=== PATIENT | male | born 1945 | race African-American/Black ===

== ENCOUNTER 2020-08-08 07:33 | Inpatient (IN) | payer MEDICARE, MEDICAID ==
[~2020-08-08] VITALS: Ht 190.5 cm; Wt 95.3 kg
[2020-08-08] VITALS (15 sets, daily range): BP systolic 149–176; BP diastolic 55–99
[2020-08-08] MEDS ORDERED: MORPHINE SULFATE 4 MG/ML CPJ (NOT FOR IM USE) IV STA (07:45)
[2020-08-08 08:31] LABS: BG FRACTION INSPIRED OXYGEN 100; BG HCO3 ACT 18.3 mmol/L (22.0-26.0); BG PCO2 23.7 mmHg (35.0-45.0); BG PH 7.506 (7.350-7.450); BG PO2 164.8 mmHg (75.0-100.0); BG SAMPLE SITE LEFT BRACHIAL; BG TOTAL HEMOGLOBIN < 4.5 g/dL (12.0-18.0); BG VENT MODE MASK - NRB
[2020-08-08 08:33] LABS: CHLORIDE 110 mEq/L (98-107)
[2020-08-08 08:57] LABS: BASOPHILS % 0.7 % (0.0-2.0); EOSINOPHILS % 0.3 % (0.0-5.0); LYMPHOCYTES % 14.8 % (20.0-50.0); MEAN CORPUSCULAR HEMOGLOBIN 24.6 pg (28.0-32.0); MEAN CORPUSCULAR VOLUME 81.7 fL (80.0-94.0); MEAN PLATELET VOLUME 8.1 fl (7.4-10.4); NEUTROPHILS % 80.2 % (40.0-76.0); PLATELET 218 x1000/uL (130-400); RED BLOOD CELL COUNT 1.07 mill/uL (4.7-6.1); RED CELL DISTRIBUTION WIDTH 19.9 % (11.6-14.6)
[2020-08-08 09:00] LABS: HEMATOCRIT. 8.8 % (42.0-52.0); HEMOGLOBIN. 2.6 g/dL (14.0-18.0)
[2020-08-08 12:11] LABS: INR 1.2; PROTHROMBIN TIME 12.4 sec (9.6-11.0)
[2020-08-08] MEDS ORDERED: IOHEXOL-350 100 ML BOTTLE ONE (14:11)
[2020-08-08] MEDS ORDERED: FUROSEMIDE 40MG/4ML VIAL IVP NR (15:30)
[2020-08-08 16:50] LABS: TOTAL IRON BINDING CAPACITY 373 ug/dL (250-450)
[2020-08-08 17:15] LABS: FOLIC ACID (FOLATE) SERUM 15.5 ng/mL (>5.38)
[2020-08-08] MEDS ORDERED: SODIUM CHLORIDE 0.9% 10ML VIAL ONE (17:40)
[2020-08-08] MEDS ORDERED: IPRATROPIUM/ALBUTEROL 0.5-3(2.5)MG/3ML NEB HHN PRN (18:15)
[2020-08-08] MEDS ORDERED: ONDANSETRON HCL 4MG/2ML INJ IV PRN (18:15)
[2020-08-08] MEDS ORDERED: ACETAMINOPHEN 325MG TABLET PO PRN ×2 (18:15)
[2020-08-08] MEDS ORDERED: LORAZEPAM 0.5MG TABLET PO PRN (18:15)
[2020-08-08] MEDS ORDERED: DOCUSATE SODIUM 100MG CAPSULE PO PRN (18:15)
[2020-08-08] MEDS: HYDROCODONE/ACETAMINOPHEN 5/325MG TABLET PO PRN (18:54)
[2020-08-08] MEDS: AMLODIPINE 5MG TABLET PO SCH (18:54)
[2020-08-08] MEDS: CLONIDINE 0.1MG TABLET PO PRN (21:06)
[2020-08-08] MEDS: PANTOPRAZOLE SODIUM 40 MG/VIAL IV SCH (22:22)
[2020-08-09] VITALS (32 sets, daily range): BP systolic 132–173; BP diastolic 61–97
[2020-08-09 00:02] LABS: HEMATOCRIT 16.4 % (42.0-52.0); HEMOGLOBIN 5.1 g/dL (14.0-18.0)
[2020-08-09 01:23] LABS: INR 1.2; PROTHROMBIN TIME 12.8 sec (9.6-11.0)
[2020-08-09] MEDS: HYDROCODONE/ACETAMINOPHEN 5/325MG TABLET PO PRN ×2 (04:05→10:30)
[2020-08-09] MEDS: CLONIDINE 0.1MG TABLET PO PRN (04:16)
[2020-08-09 06:45] LABS: BASOPHILS % 0.7 % (0.0-2.0); CHLORIDE 113 mEq/L (98-107); EOSINOPHILS % 0.8 % (0.0-5.0); MEAN CORPUSCULAR HEMOGLOBIN 26.5 pg (28.0-32.0); MEAN CORPUSCULAR VOLUME 82.8 fL (80.0-94.0); MEAN PLATELET VOLUME 7.9 fl (7.4-10.4); NEUTROPHILS % 85.5 % (40.0-76.0); PLATELET 175 x1000/uL (130-400); RED BLOOD CELL COUNT 2.39 mill/uL (4.7-6.1); RED CELL DISTRIBUTION WIDTH 16.8 % (11.6-14.6)
[2020-08-09 07:03] LABS: INR 1.2; PARTIAL THROMBOPLASTIN TIME 25.4 sec (23.4-31.0); PROTHROMBIN TIME 12.6 sec (9.6-11.0)
[2020-08-09] MEDS ORDERED: FUROSEMIDE 40MG/4ML VIAL IVP NR (07:45)
[2020-08-09 07:48] LABS: HEMATOCRIT. 19.8 % (42.0-52.0); HEMOGLOBIN. 6.3 g/dL (14.0-18.0)
[2020-08-09] MEDS: AMLODIPINE 5MG TABLET PO SCH (08:57)
[2020-08-09] MEDS: PANTOPRAZOLE SODIUM 40 MG/VIAL IV SCH ×2 (08:57→21:28)
[2020-08-09] MEDS: SPIRONOLACTONE 25MG TABLET PO SCH (10:28)
[2020-08-09] MEDS: LISINOPRIL 5MG TABLET PO SCH (10:29)
[2020-08-09] MEDS: CARVEDILOL 6.25 MG TABLET PO SCH ×2 (10:29→21:28)
[2020-08-09 14:17] LABS: HEMATOCRIT 23.2 % (42.0-52.0); HEMOGLOBIN 7.6 g/dL (14.0-18.0)
[2020-08-09] MEDS ORDERED: MIDAZOLAM HCL 5 MG/5 ML VIAL IV PRN (17:35)
[2020-08-09] MEDS ORDERED: FENTANYL CITRATE/PF 50MCG/ML 2ML VIAL IV PRN (17:36)
[2020-08-09] MEDS ORDERED: MIDAZOLAM HCL 5 MG/5 ML VIAL ONE (17:38)
[2020-08-09] MEDS ORDERED: FENTANYL CITRATE/PF 50MCG/ML 2ML VIAL ONE (17:39)
[2020-08-09] MEDS ORDERED: SODIUM CHLORIDE 0.9% 10ML VIAL ONE (17:40)
[2020-08-09 20:12] LABS: INR 1.1; PROTHROMBIN TIME 12.2 sec (9.6-11.0)
[2020-08-10] VITALS (12 sets, daily range): BP systolic 131–159; BP diastolic 65–94
[2020-08-10] MEDS: HYDROCODONE/ACETAMINOPHEN 5/325MG TABLET PO PRN ×3 (00:31→20:54)
[2020-08-10 07:05] LABS: CHLORIDE 110 mEq/L (98-107)
[2020-08-10 07:06] LABS: BASOPHILS % 0.9 % (0.0-2.0); EOSINOPHILS % 2.7 % (0.0-5.0); HEMATOCRIT. 24.4 % (42.0-52.0); HEMOGLOBIN. 8.1 g/dL (14.0-18.0); LYMPHOCYTES % 10.2 % (20.0-50.0); MEAN CORPUSCULAR HEMOGLOBIN 27.3 pg (28.0-32.0); MEAN CORPUSCULAR VOLUME 82.7 fL (80.0-94.0); MEAN PLATELET VOLUME 8.2 fl (7.4-10.4); MONOCYTES % 4.8 % (2.0-8.0); NEUTROPHILS % 81.4 % (40.0-76.0); PLATELET 151 x1000/uL (130-400); RED BLOOD CELL COUNT 2.95 mill/uL (4.7-6.1); RED CELL DISTRIBUTION WIDTH 16.8 % (11.6-14.6)
[2020-08-10] MEDS ORDERED: SORBITOL 70% SOLN 30ML PO NR (08:00)
[2020-08-10] MEDS ORDERED: BISACODYL 10MG SUPP PR NR (08:00)
[2020-08-10] MEDS: AMLODIPINE 5MG TABLET PO SCH (08:53)
[2020-08-10] MEDS: PANTOPRAZOLE SODIUM 40 MG/VIAL IV SCH ×2 (08:54→20:46)
[2020-08-10] MEDS: LISINOPRIL 5MG TABLET PO SCH (08:55)
[2020-08-10] MEDS: SPIRONOLACTONE 25MG TABLET PO SCH (08:55)
[2020-08-10] MEDS ORDERED: FUROSEMIDE 40MG/4ML VIAL IVP SCH (09:00)
[2020-08-10] MEDS: CARVEDILOL 6.25 MG TABLET PO SCH (09:21)
[2020-08-10] MEDS ORDERED: LISINOPRIL 5MG TABLET PO NR (10:45)
[2020-08-10] MEDS ORDERED: POTASSIUM CHLORIDE 20MEQ TABLET SR PO NR (11:00)
[2020-08-10] MEDS: IRON SUCROSE COMPLEX 100 MG/5 ML ML IV SCH (12:29)
[2020-08-10] MEDS: FUROSEMIDE 40MG/4ML VIAL IVP SCH (17:47)
[2020-08-10] MEDS: CLONIDINE 0.1MG TABLET PO PRN (18:32)
[2020-08-10] MEDS: CARVEDILOL 12.5MG TABLET PO SCH (20:47)
[2020-08-11] VITALS (10 sets, daily range): BP systolic 131–160; BP diastolic 59–80
[2020-08-11] MEDS: FUROSEMIDE 40MG/4ML VIAL IVP SCH (06:13)
[2020-08-11] MEDS: HYDROCODONE/ACETAMINOPHEN 5/325MG TABLET PO PRN ×2 (06:14→13:33)
[2020-08-11 07:18] LABS: BASOPHILS % 1.4 % (0.0-2.0); EOSINOPHILS % 5.4 % (0.0-5.0); HEMOGLOBIN. 8.6 g/dL (14.0-18.0); LYMPHOCYTES % 15.3 % (20.0-50.0); MEAN CORPUSCULAR HEMOGLOBIN 27.3 pg (28.0-32.0); MEAN CORPUSCULAR VOLUME 82.9 fL (80.0-94.0); MEAN PLATELET VOLUME 8.4 fl (7.4-10.4); MONOCYTES % 5.3 % (2.0-8.0); NEUTROPHILS % 72.6 % (40.0-76.0); PLATELET 156 x1000/uL (130-400); RED BLOOD CELL COUNT 3.14 mill/uL (4.7-6.1); RED CELL DISTRIBUTION WIDTH 16.7 % (11.6-14.6)
[2020-08-11 07:26] LABS: CHLORIDE 105 mEq/L (98-107)
[2020-08-11] MEDS: SPIRONOLACTONE 25MG TABLET PO SCH (08:49)
[2020-08-11] MEDS: AMLODIPINE 5MG TABLET PO SCH (08:49)
[2020-08-11] MEDS: PANTOPRAZOLE SODIUM 40 MG/VIAL IV SCH (08:49)
[2020-08-11] MEDS: CARVEDILOL 12.5MG TABLET PO SCH (08:50)
[2020-08-11] MEDS ORDERED: LISINOPRIL 10MG TABLET PO SCH (09:00)
[2020-08-11] MEDS ORDERED: POTASSIUM CHLORIDE INJ 40 MEQ in DEXT 5% WATER 250 ML IV NR (11:00)
[2020-08-11] MEDS ORDERED: FURO40TA5 MT (13:04)
[2020-08-11] MEDS ORDERED: FERR325T23 MT (13:04)
[2020-08-11] MEDS ORDERED: COR12 PO (13:04)
[2020-08-11] MEDS ORDERED: AMLO5TAB88 PO (13:04)
[2020-08-11] MEDS ORDERED: SPIR25TA PO (13:04)
[2020-08-11] MEDS ORDERED: LISI10TA26 PO (13:04)
[2020-08-11] MEDS ORDERED: PANT40TA51 MT (13:04)
[2020-08-11] MEDS: IRON SUCROSE COMPLEX 100 MG/5 ML ML IV SCH (13:36)
[2020-08-11] MEDS ORDERED: POTASSIUM CHLORIDE 20MEQ TABLET SR PO SCH (16:00)
[2020-08-11] MEDS ORDERED: FUROSEMIDE 40MG TABLET PO SCH (18:00)
[2020-08-11] MEDS ORDERED: FLUTICASONE PROPIONATE 50MCG/SPRAY BOTTLE BOTHNSTRLS SCH (21:00)
== END 2020-08-11 18:30 | disposition home health service (06) | DRG 377 ==
LOC: ER 08:00 → 3WST 10:54 → EDBEDREQSVC 10:58 → EDBEDREQTM 10:58 → EDBEDREQ 10:58 → ENRESERV 14:43
PROVIDERS: ADMIT Internal Medicine; ATTEND Internal Medicine
PROC: 30233N1 Transfusion of Nonautologous Red Blood Cells into Peripheral Vein, Percutaneous Approach (ICD-10-PCS; 2020-08-08)
PROC: 0DB68ZX Excision of Stomach, Via Natural or Artificial Opening Endoscopic, Diagnostic (ICD-10-PCS; principal; 2020-08-09)
DX: K29.61 Other gastritis with bleeding (principal); I50.23 Acute on chronic systolic (congestive) heart failure; J96.00 Acute respiratory failure, unspecified whether with hypoxia or hypercapnia; I21.A1 Myocardial infarction type 2; I42.9 Cardiomyopathy, unspecified; J91.8 Pleural effusion in other conditions classified elsewhere; D50.9 Iron deficiency anemia, unspecified; I11.0 Hypertensive heart disease with heart failure; E78.5 Hyperlipidemia, unspecified; I25.10 Atherosclerotic heart disease of native coronary artery without angina pectoris; R07.89 Other chest pain; I48.0 Paroxysmal atrial fibrillation; J44.9 Chronic obstructive pulmonary disease, unspecified; B96.81 Helicobacter pylori [H. pylori] as the cause of diseases classified elsewhere; Z20.822 Contact with and (suspected) exposure to COVID-19; K62.89 Other specified diseases of anus and rectum; K52.9 Noninfective gastroenteritis and colitis, unspecified; K44.9 Diaphragmatic hernia without obstruction or gangrene; Z95.1 Presence of aortocoronary bypass graft; Z95.5 Presence of coronary angioplasty implant and graft; I25.2 Old myocardial infarction
CPT/HCPCS: 36415; 36600; 71045; 71275; 74177; 80048; 80053; 80061; 82375; 82607; 82728; 82746; 82805; 83010; 83036; 83540; 83550; 83615; 83880; 84443; 84484; 85014; 85018; 85025; 85044; 85049; 85384; 86850; 86900; 86920; 87426; 88305; 88312; 88313; 93005; 93306; 99291; C9113; J1940; J2250; J2270; J3010; J3480; J7040; J7060; P9016; Q9967

== ENCOUNTER 2020-08-19 15:39 | Emergency (ER) | payer MEDICAID, MEDICARE ==
[~2020-08-19] VITALS: Ht 177.8 cm; Wt 810.0 kg
[~2020-08-19 15:39] MED LIST: AMLO5TAB88 PO; COR12 PO; FERR325T23 MT; FURO40TA5 MT; LISI10TA26 PO; PANT40TA51 MT; SPIR25TA PO
[2020-08-19 15:43] VITALS: BP 170/95
== END 2020-08-19 15:47 | disposition left against medical advice (07) ==
LOC: ER 15:39
DX: Z53.21 Procedure and treatment not carried out due to patient leaving prior to being seen by health care provider (principal)

== ENCOUNTER 2021-01-03 20:14 | Inpatient (IN) | payer BC, MEDICAID ==
[~2021-01-03] VITALS: Ht 190.5 cm; Wt 86.2 kg
[2021-01-03] MEDS ORDERED: DIPHENHYDRAMINE 25MG CAPSULE PO ONE (22:30)
[2021-01-03 22:56] LABS: BASOPHILS % 0.4 % (0.0-2.0); EOSINOPHILS % 2.1 % (0.0-5.0); LYMPHOCYTES % 18.1 % (20.0-50.0); MEAN CORPUSCULAR HEMOGLOBIN 26.8 pg (28.0-32.0); MEAN CORPUSCULAR VOLUME 83.8 fL (80.0-94.0); MEAN PLATELET VOLUME 7.1 fl (7.4-10.4); MONOCYTES % 5.1 % (2.0-8.0); NEUTROPHILS % 74.3 % (40.0-76.0); PLATELET 281 x1000/uL (130-400); RED BLOOD CELL COUNT 2.21 mill/uL (4.7-6.1); RED CELL DISTRIBUTION WIDTH 18.3 % (11.6-14.6)
[2021-01-03 23:01] LABS: CHLORIDE 106 mEq/L (98-107)
[2021-01-03 23:09] LABS: HEMATOCRIT. 18.5 % (42.0-52.0); HEMOGLOBIN. 5.9 g/dL (14.0-18.0)
[2021-01-04] VITALS (17 sets, daily range): BP systolic 94–145; BP diastolic 42–65
[2021-01-04] MEDS ORDERED: NALOXONE HCL 0.4MG/ML VIAL IV PRN (05:00)
[2021-01-04] MEDS: HYDROCODONE/ACETAMINOPHEN 5/325MG TABLET PO PRN ×4 (05:13→20:18)
[2021-01-04] MEDS: METOPROLOL TARTRATE 50MG TABLET PO SCH ×2 (08:44→20:17)
[2021-01-04] MEDS: ISOSORBIDE MONONITRATE 60MG TABLET SR 24HR PO SCH (08:44)
[2021-01-04] MEDS ORDERED: ASPIRIN 81MG TABLET PO SCH (09:00)
[2021-01-04] MEDS ORDERED: ENOXAPARIN 40MG/0.4ML SYR SUBCUT SCH (11:00)
[2021-01-04] MEDS: PANTOPRAZOLE SODIUM 40 MG/VIAL IV SCH (13:59)
[2021-01-04 17:40] LABS: BASOPHILS % 0.6 % (0.0-2.0); EOSINOPHILS % 5.2 % (0.0-5.0); HEMATOCRIT. 21.1 % (42.0-52.0); LYMPHOCYTES % 19.6 % (20.0-50.0); MEAN CORPUSCULAR HEMOGLOBIN 27.9 pg (28.0-32.0); MEAN CORPUSCULAR VOLUME 83.5 fL (80.0-94.0); MEAN PLATELET VOLUME 7.4 fl (7.4-10.4); MONOCYTES % 5.8 % (2.0-8.0); NEUTROPHILS % 68.8 % (40.0-76.0); PLATELET 272 x1000/uL (130-400); RED BLOOD CELL COUNT 2.52 mill/uL (4.7-6.1); RED CELL DISTRIBUTION WIDTH 17.2 % (11.6-14.6)
[2021-01-04 17:52] LABS: CHLORIDE 107 mEq/L (98-107)
[2021-01-04 17:58] LABS: TOTAL IRON BINDING CAPACITY 322 ug/dL (250-450)
[2021-01-04 18:11] LABS: FOLIC ACID (FOLATE) SERUM 7.4 ng/mL (>5.38)
[2021-01-04] MEDS: ATORVASTATIN CALCIUM 40MG TABLET PO SCH (20:17)
[2021-01-05] VITALS (7 sets, daily range): BP systolic 114–129; BP diastolic 53–63
[2021-01-05 00:08] LABS: METHADONE URINE SCREEN NEGATIVE (NEGATIVE)
[2021-01-05 00:09] LABS: *AMPHETAMINES SCREEN URINE NEGATIVE (NEGATIVE); CANNABINOID URINE SCREEN NEGATIVE (NEGATIVE); OPIATES URINE SCREEN PRESUMTIVE POSITIVE (NEGATIVE); PHENCYCLIDINE URINE SCREEN NEGATIVE (NEGATIVE)
[2021-01-05 00:10] LABS: *BARBITURATES SCREEN URINE NEGATIVE (NEGATIVE); *BENZODIAZEPINES SCREEN URINE NEGATIVE (NEGATIVE); *COCAINE SCREEN URINE NEGATIVE (NEGATIVE)
[2021-01-05] MEDS: HYDROCODONE/ACETAMINOPHEN 5/325MG TABLET PO PRN ×4 (06:21→20:39)
[2021-01-05] MEDS: ISOSORBIDE MONONITRATE 60MG TABLET SR 24HR PO SCH (10:56)
[2021-01-05] MEDS: IRON SUCROSE COMPLEX 100 MG/5 ML ML IV SCH (10:57)
[2021-01-05] MEDS: METOPROLOL TARTRATE 50MG TABLET PO SCH (10:57)
[2021-01-05] MEDS: PANTOPRAZOLE SODIUM 40 MG/VIAL IV SCH (10:57)
[2021-01-05 15:38] LABS: BASOPHILS % 0.7 % (0.0-2.0); EOSINOPHILS % 6.2 % (0.0-5.0); HEMATOCRIT. 24.9 % (42.0-52.0); HEMOGLOBIN. 8.2 g/dL (14.0-18.0); LYMPHOCYTES % 15.7 % (20.0-50.0); MEAN CORPUSCULAR HEMOGLOBIN 28.3 pg (28.0-32.0); MEAN PLATELET VOLUME 7.1 fl (7.4-10.4); MONOCYTES % 5.6 % (2.0-8.0); NEUTROPHILS % 71.8 % (40.0-76.0); PLATELET 267 x1000/uL (130-400); RED CELL DISTRIBUTION WIDTH 16.4 % (11.6-14.6)
[2021-01-05] MEDS: CARVEDILOL 6.25 MG TABLET PO SCH ×2 (15:38→22:43)
[2021-01-05] MEDS: SPIRONOLACTONE 25MG TABLET PO SCH (15:38)
[2021-01-05 15:52] LABS: CHLORIDE 106 mEq/L (98-107)
[2021-01-05] MEDS: ATORVASTATIN CALCIUM 40MG TABLET PO SCH (20:39)
[2021-01-06] VITALS: BP 112/54
[2021-01-06] MEDS: HYDROCODONE/ACETAMINOPHEN 5/325MG TABLET PO PRN ×4 (05:00→20:19)
[2021-01-06 06:05] LABS: CHLORIDE 108 mEq/L (98-107)
[2021-01-06 06:07] LABS: BASOPHILS % 0.5 % (0.0-2.0); EOSINOPHILS % 7.2 % (0.0-5.0); HEMATOCRIT. 21.1 % (42.0-52.0); HEMOGLOBIN. 7.2 g/dL (14.0-18.0); LYMPHOCYTES % 16.7 % (20.0-50.0); MEAN CORPUSCULAR HEMOGLOBIN 28.8 pg (28.0-32.0); MEAN CORPUSCULAR VOLUME 84.2 fL (80.0-94.0); MEAN PLATELET VOLUME 7.4 fl (7.4-10.4); MONOCYTES % 4.2 % (2.0-8.0); NEUTROPHILS % 71.4 % (40.0-76.0); PLATELET 228 x1000/uL (130-400); RED CELL DISTRIBUTION WIDTH 16.4 % (11.6-14.6)
[2021-01-06 08:00] VITALS: BP 125/88
[2021-01-06] MEDS: IRON SUCROSE COMPLEX 100 MG/5 ML ML IV SCH (10:12)
[2021-01-06] MEDS: PANTOPRAZOLE SODIUM 40 MG/VIAL IV SCH (10:12)
[2021-01-06] MEDS: CARVEDILOL 6.25 MG TABLET PO SCH ×2 (10:13→20:22)
[2021-01-06] MEDS: SPIRONOLACTONE 25MG TABLET PO SCH (10:13)
[2021-01-06] MEDS: ISOSORBIDE MONONITRATE 60MG TABLET SR 24HR PO SCH (10:14)
[2021-01-06] MEDS: FUROSEMIDE 40MG TABLET PO SCH (10:16)
[2021-01-06 12:00] VITALS: BP 127/52
[2021-01-06 14:17] VITALS: BP 123/60
[2021-01-06 16:00] VITALS: BP 118/61
[2021-01-06] MEDS ORDERED: ZOLPIDEM TARTRATE 5MG TABLET PO PRN (18:15)
[2021-01-06 20:00] VITALS: BP 153/70
[2021-01-06] MEDS: DOCUSATE SODIUM 100MG CAPSULE PO SCH (20:19)
[2021-01-06] MEDS: ATORVASTATIN CALCIUM 40MG TABLET PO SCH (20:20)
[2021-01-06 20:34] LABS: BASOPHILS % 0.7 % (0.0-2.0); EOSINOPHILS % 6.2 % (0.0-5.0); HEMATOCRIT. 27.7 % (42.0-52.0); HEMOGLOBIN. 9.3 g/dL (14.0-18.0); LYMPHOCYTES % 14.4 % (20.0-50.0); MEAN CORPUSCULAR HEMOGLOBIN 28.6 pg (28.0-32.0); MEAN PLATELET VOLUME 7.7 fl (7.4-10.4); MONOCYTES % 4.5 % (2.0-8.0); NEUTROPHILS % 74.2 % (40.0-76.0); PLATELET 277 x1000/uL (130-400); RED BLOOD CELL COUNT 3.25 mill/uL (4.7-6.1); RED CELL DISTRIBUTION WIDTH 16.2 % (11.6-14.6)
[2021-01-07] VITALS: BP 151/67
[2021-01-07] MEDS: HYDROCODONE/ACETAMINOPHEN 5/325MG TABLET PO PRN ×6 (00:11→21:59)
[2021-01-07 04:00] VITALS: BP 142/73
[2021-01-07 05:53] LABS: BASOPHILS % 0.5 % (0.0-2.0); EOSINOPHILS % 7.1 % (0.0-5.0); HEMATOCRIT. 25.4 % (42.0-52.0); HEMOGLOBIN. 8.5 g/dL (14.0-18.0); LYMPHOCYTES % 18.2 % (20.0-50.0); MEAN CORPUSCULAR HEMOGLOBIN 28.3 pg (28.0-32.0); MEAN CORPUSCULAR VOLUME 84.4 fL (80.0-94.0); MEAN PLATELET VOLUME 7.4 fl (7.4-10.4); NEUTROPHILS % 70.2 % (40.0-76.0); PLATELET 249 x1000/uL (130-400); RED BLOOD CELL COUNT 3.01 mill/uL (4.7-6.1); RED CELL DISTRIBUTION WIDTH 15.9 % (11.6-14.6)
[2021-01-07 06:09] LABS: CHLORIDE 104 mEq/L (98-107)
[2021-01-07] MEDS: FUROSEMIDE 40MG TABLET PO SCH (08:44)
[2021-01-07] MEDS: IRON SUCROSE COMPLEX 100 MG/5 ML ML IV SCH (08:44)
[2021-01-07] MEDS: PANTOPRAZOLE SODIUM 40 MG/VIAL IV SCH (08:44)
[2021-01-07] MEDS: DOCUSATE SODIUM 100MG CAPSULE PO SCH ×2 (08:45→17:21)
[2021-01-07] MEDS: CARVEDILOL 6.25 MG TABLET PO SCH ×2 (08:47→21:50)
[2021-01-07] MEDS: ISOSORBIDE MONONITRATE 60MG TABLET SR 24HR PO SCH (08:47)
[2021-01-07] MEDS: SPIRONOLACTONE 25MG TABLET PO SCH (08:47)
[2021-01-07 12:00] VITALS: BP 119/59
[2021-01-07 16:00] VITALS: BP 116/62
[2021-01-07] MEDS ORDERED: SORBITOL 70% SOLN 30ML PO NR (16:00)
[2021-01-07] MEDS: BISACODYL 5MG TABLET PO SCH ×2 (18:08→21:51)
[2021-01-07] MEDS: SORBITOL 70% SOLN 30ML PO SCH ×2 (18:08→21:50)
[2021-01-07] MEDS: METOCLOPRAMIDE HCL 10MG/2ML VIAL IV SCH ×2 (18:08→21:51)
[2021-01-07 20:00] VITALS: BP 123/79
[2021-01-07 21:22] LABS: PROTHROMBIN TIME 11.2 sec (9.6-11.0)
[2021-01-07] MEDS: ATORVASTATIN CALCIUM 40MG TABLET PO SCH (21:50)
[2021-01-07 23:17] LABS: BASOPHILS % 0.3 % (0.0-2.0); EOSINOPHILS % 7.2 % (0.0-5.0); HEMATOCRIT. 27.4 % (42.0-52.0); HEMOGLOBIN. 9.2 g/dL (14.0-18.0); LYMPHOCYTES % 17.1 % (20.0-50.0); MEAN CORPUSCULAR HEMOGLOBIN 28.9 pg (28.0-32.0); MEAN CORPUSCULAR VOLUME 86.5 fL (80.0-94.0); MEAN PLATELET VOLUME 7.2 fl (7.4-10.4); NEUTROPHILS % 70.4 % (40.0-76.0); PLATELET 281 x1000/uL (130-400); RED BLOOD CELL COUNT 3.17 mill/uL (4.7-6.1); RED CELL DISTRIBUTION WIDTH 16.4 % (11.6-14.6)
[2021-01-08] VITALS: BP 123/53
[2021-01-08] MEDS: SORBITOL 70% SOLN 30ML PO SCH ×2 (02:30→05:46)
[2021-01-08 04:00] VITALS: BP 144/76
[2021-01-08] MEDS: BISACODYL 5MG TABLET PO SCH (05:42)
[2021-01-08] MEDS: METOCLOPRAMIDE HCL 10MG/2ML VIAL IV SCH (05:45)
[2021-01-08] MEDS: HYDROCODONE/ACETAMINOPHEN 5/325MG TABLET PO PRN ×4 (05:45→22:00)
[2021-01-08] MEDS ORDERED: LIDOCAINE HCL 1% 20ML VIAL (Pyxis) INJ ONE (07:43)
[2021-01-08 08:00] VITALS: BP 126/61
[2021-01-08] MEDS: CARVEDILOL 6.25 MG TABLET PO SCH ×2 (08:20→21:46)
[2021-01-08] MEDS: DOCUSATE SODIUM 100MG CAPSULE PO SCH ×2 (08:20→17:00)
[2021-01-08] MEDS: ISOSORBIDE MONONITRATE 60MG TABLET SR 24HR PO SCH (08:20)
[2021-01-08] MEDS: FUROSEMIDE 40MG TABLET PO SCH (08:21)
[2021-01-08] MEDS: PANTOPRAZOLE SODIUM 40 MG/VIAL IV SCH (09:01)
[2021-01-08 10:27] LABS: BASOPHILS % 0.4 % (0.0-2.0); HEMATOCRIT. 30.6 % (42.0-52.0); HEMOGLOBIN. 9.9 g/dL (14.0-18.0); LYMPHOCYTES % 7.8 % (20.0-50.0); MEAN CORPUSCULAR HEMOGLOBIN 28.5 pg (28.0-32.0); MEAN CORPUSCULAR VOLUME 87.7 fL (80.0-94.0); MEAN PLATELET VOLUME 7.3 fl (7.4-10.4); MONOCYTES % 1.6 % (2.0-8.0); NEUTROPHILS % 85.2 % (40.0-76.0); PLATELET 348 x1000/uL (130-400); RED BLOOD CELL COUNT 3.49 mill/uL (4.7-6.1)
[2021-01-08 10:51] LABS: PROTHROMBIN TIME 10.9 sec (9.6-11.0)
[2021-01-08 12:00] VITALS: BP 118/60
[2021-01-08] MEDS ORDERED: MIDAZOLAM HCL 5 MG/5 ML VIAL ONE ×2 (15:38→16:41)
[2021-01-08] MEDS ORDERED: FENTANYL CITRATE/PF 50MCG/ML 2ML VIAL ONE (15:38)
[2021-01-08] MEDS ORDERED: FENTANYL CITRATE/PF 50MCG/ML 2ML VIAL IV PRN (16:05)
[2021-01-08] MEDS ORDERED: MIDAZOLAM HCL 5 MG/5 ML VIAL IV PRN (16:06)
[2021-01-08] MEDS ORDERED: DIAZEPAM 5 MG/ML 2ML CPJ IV PRN (16:08)
[2021-01-08] MEDS ORDERED: DIAZEPAM 5 MG/ML 2ML CPJ ONE (16:16)
[2021-01-08 19:55] LABS: HEMATOCRIT 27.6 % (42.0-52.0); HEMOGLOBIN 9.3 g/dL (14.0-18.0); MEAN CORPUSCULAR HEMOGLOBIN 29.4 pg (28.0-32.0); PLATELET 286 x1000/uL (130-400); RED BLOOD CELL COUNT 3.18 mill/uL (4.7-6.1); RED CELL DISTRIBUTION WIDTH 16.4 % (11.6-14.6)
[2021-01-08 20:00] VITALS: BP 137/66
[2021-01-08] MEDS: ATORVASTATIN CALCIUM 40MG TABLET PO SCH (21:46)
[2021-01-09] VITALS: BP 138/76
[2021-01-09 04:00] VITALS: BP 137/68
[2021-01-09] MEDS: PANTOPRAZOLE SODIUM 40 MG/VIAL IV SCH (09:00)
[2021-01-09] MEDS: FUROSEMIDE 40MG TABLET PO SCH (09:00)
[2021-01-09] MEDS: CARVEDILOL 6.25 MG TABLET PO SCH (09:00)
[2021-01-09] MEDS: ISOSORBIDE MONONITRATE 60MG TABLET SR 24HR PO SCH (09:00)
[2021-01-09] MEDS: DOCUSATE SODIUM 100MG CAPSULE PO SCH (09:00)
[2021-01-09] MEDS ORDERED: COR12 PO (10:07)
[2021-01-09] MEDS ORDERED: AMLO5TAB4 PO (10:07)
[2021-01-09] MEDS ORDERED: FURO-151 PO (10:08)
[2021-01-09] MEDS ORDERED: LISI10TA26 PO (10:08)
[2021-01-09] MEDS ORDERED: FERR325T6 PO (10:08)
[2021-01-09] MEDS ORDERED: PANT40TA51 PO (10:08)
[2021-01-09] MEDS ORDERED: SPIR25TA PO (10:09)
[2021-01-09 10:10] VITALS: BP 137/68
== END 2021-01-09 10:25 | disposition home or self-care (01) | DRG 377 ==
LOC: ER 20:14 → MICUSO 01-04 01:35 → 8WST 01-04 02:03
PROVIDERS: ADMIT Internal Medicine; ATTEND Internal Medicine
PROC: 30233N1 Transfusion of Nonautologous Red Blood Cells into Peripheral Vein, Percutaneous Approach (ICD-10-PCS; principal; 2021-01-04)
PROC: 0DB78ZX Excision of Stomach, Pylorus, Via Natural or Artificial Opening Endoscopic, Diagnostic (ICD-10-PCS; 2021-01-08)
PROC: 0DJD8ZZ Inspection of Lower Intestinal Tract, Via Natural or Artificial Opening Endoscopic (ICD-10-PCS; 2021-01-08)
DX: K57.31 Diverticulosis of large intestine without perforation or abscess with bleeding (principal); I50.43 Acute on chronic combined systolic (congestive) and diastolic (congestive) heart failure; N17.0 Acute kidney failure with tubular necrosis; E44.1 Mild protein-calorie malnutrition; I11.0 Hypertensive heart disease with heart failure; D50.9 Iron deficiency anemia, unspecified; I25.10 Atherosclerotic heart disease of native coronary artery without angina pectoris; K29.71 Gastritis, unspecified, with bleeding; D72.819 Decreased white blood cell count, unspecified; E78.5 Hyperlipidemia, unspecified; I44.0 Atrioventricular block, first degree; I48.0 Paroxysmal atrial fibrillation; J44.9 Chronic obstructive pulmonary disease, unspecified; Z20.822 Contact with and (suspected) exposure to COVID-19; K64.8 Other hemorrhoids; Z79.82 Long term (current) use of aspirin; Z86.73 Personal history of transient ischemic attack (TIA), and cerebral infarction without residual deficits; Z95.1 Presence of aortocoronary bypass graft; Z79.899 Other long term (current) drug therapy; Z79.84 Long term (current) use of oral hypoglycemic drugs; Z68.23 Body mass index [BMI] 23.0-23.9, adult
CPT/HCPCS: 36415; 71045; 80048; 80053; 80305; 82607; 82728; 82746; 83540; 83550; 83880; 84484; 85025; 85027; 85044; 86850; 86900; 86920; 87426; 88305; 88312; 88313; 93005; 93306; 97162; 99291; C1893; C9113; J2250; J2765; J3010; J3490; J7040; P9016; Q0163